=== PATIENT | male | born 1955 | race Caucasian/White ===

== ENCOUNTER 2017-09-23 06:55 | Emergency (ER) | payer SELFPAY ==
[~2017-09-23] VITALS: Ht 182.9 cm; Wt 75.0 kg
[2017-09-23 07:05] VITALS: BP 160/98; PULSE 102; RESP 14; TEMP 97.8; O2SAT 95
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
[2017-09-23] MEDS ORDERED: KETOROLAC TROMETHAMINE 60 MG/2 ML (IM) VIAL IM ONE (07:30)
[2017-09-23] MEDS ORDERED: IBUP1TAB7 PO (08:59)
[2017-09-23] MEDS ORDERED: MAPA500T13 PO (08:59)
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
== END 2017-09-23 09:21 | disposition home or self-care (01) ==
LOC: NEPD 06:55
DX: S20.212A Contusion of left front wall of thorax, initial encounter (principal); S39.012A Strain of muscle, fascia and tendon of lower back, initial encounter; S00.83XA Contusion of other part of head, initial encounter; Y04.0XXA Assault by unarmed brawl or fight, initial encounter
CPT/HCPCS: 71101; 96372; 99284; J1885